=== PATIENT | male | born 1945 | race Caucasian/White ===

== ENCOUNTER 2016-11-02 16:35 | Emergency (ER) | payer MEDICARE ==
[~2016-11-02] VITALS: Ht 182.9 cm; Wt 75.0 kg
[2016-11-02] MEDS ORDERED: OXYC10TA6 PO (16:51)
[2016-11-02] MEDS ORDERED: METH500T7 PO (16:51)
[2016-11-02] MEDS ORDERED: METF500T4 PO (16:51)
[2016-11-02] MEDS ORDERED: FENT1PAT77 TD (16:51)
[2016-11-02 18:05] VITALS: BP 138/84
[2016-11-02] MEDS ORDERED: MORPHINE SULFATE 4 MG/ML, 1ML IVPush PRN (18:30)
[2016-11-02] MEDS ORDERED: ONDANSETRON 2MG/ML, 2ML IVPush ONE (18:30)
[2016-11-02] MEDS ORDERED: VISIPAQUE 270 MG/ML, 50ML BOTTLE ONE (18:54)
== END 2016-11-02 21:14 ==
LOC: ED 19:20
DX: Z43.1 Encounter for attention to gastrostomy (principal)
CPT/HCPCS: 49450; 75984; 99284; C1729; C1769; Q9966